=== PATIENT | female | born 1965 | race Caucasian/White ===

== ENCOUNTER 2023-06-27 02:20 | Day surgery (SDC) | payer OTHER, SELFPAY ==
--- NOTE | 2023-06-20 14:40 | SUR.PREOP ---
Report to the Outpatient Waiting Room, entrance under the green pavilion located off [facility], at time 0900 on date 06/27/23. Planned Procedure Time: 1100. Time changes happen often and if your time is changed the preop area will call you the afternoon before. - You and your visitor will be asked to self-screen and do not enter if you have any COVID symptoms. - A mask is optional within the hospital at this time. Patients may have clear liquids (water, carbonated beverages, clear teas, apple juice) until 3 hours prior to surgery with a maximum of 20 ounces. - No food from midnight until time of surgery - Infants may have breast milk until 4 hours before surgery, infant formula 6 hours prior to surgery. - Children will be allowed to drink immediately following surgery. If applicable, please bring a bottle or sippy cup to assist with drinking. Juice, water, soda, and popsicles are readily available. For infants on formula, please bring formula the day of surgery. Pacifiers are allowed. Take the following medications with a SIP of water the morning of surgery: N/A DO NOT STOP ANY OF YOUR OTHER PRESCRIPTION MEDICATIONS PRIOR TO SURGERY ?EXCEPT THE FOLLOWING Medications to discontinue per physician ALL VITAMINES AND SUPPLIMENTS 3 DAYS PRIOR. SEMAGLUTIDE (RYBELSUS 14MG PO)- STOP TODAY 06/20/23 Date to take last dose Please no make-up, nail bulgarian, hairspray, perfume, deodorant, or body powder the day of surgery. No jewelry (including any body piercings) or valuables the day of surgery, leave them at home. Please take a shower or bath the night before, or the morning of, surgery with an antibacterial soap. Wear comfortable, loose fitting clothing. Children are encouraged to wear pajamas. - Jewelry must be removed prior to entering the operating room. Rings and piercings that are not removed may be cut off. - The hospital will not accept responsibility for valuables. - Please leave all valuables, including medications, at home the day of surgery. If you are going home after surgery, a licensed corporate driver must drive you home. - NO public transportation without another adult if you receive anesthesia. - We recommend that an adult stay with you for 24 hours following discharge. - We also recommend that you do not drive, make important decision, drink alcoholic beverages, or take any drugs that were not prescribed by your health care provider for at least 24 hours after your discharge time. For Pediatric surgeries, we recommend two adults accompany the child home. Follow any additional instructions given to you from your surgeon. If you or anyone in your household have experienced Covid symptoms in the past week, please notify your surgeon or the nurse liaison at the phone number below for possible testing. Telephone instructions given to TABBY MICHAUD and asked if any additional questions and then verbalized understanding. Patient advised to call surgeon office or pre surgery nurse liaison [phone] if any additional questions.
[2023-06-20 15:06] VITALS: BMI 47.9
--- NOTE | 2023-06-27 07:21 | WPDHPUPDATE1 ---
History and Physical Update Update Date/Time: 06/27/23 07:21 History and Physical has been reviewed, including an updated exam of the patient. There are NO changes in the patient's condition. Risks, benefits, and alternatives have been discussed and questions answered. Patient agrees to proceed with procedure.
--- NOTE | 2023-06-27 07:21 | PM.HPGS ---
History of Present Illness History of Present Illness Consent: Risks, benefits, and alternatives have been discussed and questions answered. Patient agrees to proceed with procedure. Chief complaint: Post Menopausal Bleeding Narrative: Roberta Plata is a 58 year old new to my office in May of 2023. She reports over the last 18 months episodes of vaginal bleeding. Pelvic ultrasound revealed a thickened endometrium. Also, the ultrasound revealed possible fibroids. It was recommended to undergo D&C hysteroscopy. Risks infection bleeding, perforation, and possible pathology are discussed. In addition if the fibroid is blocking the view the endometrium, it was recommended to shave this down to see around it. Risks of fluid imbalance were also discussed. Patient voices understanding and agrees to proceed. Review of Systems Review of Systems: not repeated day of surgery; patient states no changes in status PMFSH Past Medical History Medical History (Updated 06/27/23 @ 07:46 by Tracy June MD) Diabetes Surgical History Surgical History (Updated 06/27/23 @ 07:44 by Tracy June MD) Hx of wisdom tooth extraction Social History Social History Years smoked: 7 Smoking status: Former smoker Last use: 32 years old Living arrangements: with family Spiritual care concerns: No Meds Home Medications and Allergies Home Medications Medication Instructions Recorded Confirmed Type Mag-Caps 500 mg PO DAILY 06/20/23 06/20/23 History ergocalciferol (vitamin D2) 1,250 1,250 mcg PO DAILY 06/20/23 06/20/23 History mcg (50,000 unit) capsule losartan 25 mg tablet 25 mg PO DAILY 06/20/23 06/20/23 History semaglutide 14 mg tablet (Rybelsus) 14 mg PO DAILY 06/20/23 06/20/23 History vitamin I92-wqzly acid 1,000 mcg PO DAILY 06/20/23 06/20/23 History Allergies Allergy/AdvReac Type Severity Reaction Status Date / Time No Known Allergies Allergy Verified 06/20/23 14:15 Exam Const: General: obese (BMI 48.4) Orientation/consciousness: patient oriented x3 Resp: Effort & Inspection: normal respiratory effort Auscultation: clear to auscultation bilaterally Cardio: Rate: regular rate Rhythm: regular rhythm GI: GI Palp: Yes Soft to palpation, No Tenderness to palpation present (GI) and No Palpable mass present : External Female Exam: normal external appearance Speculum Exam - Vagina: normal appearance of the vagina and normal vaginal discharge Speculum Exam - Cervix: normal appearance of the cervix Bimanual exam- vagina & uterus: uterine size normal and consistency normal Bimanual Exam- Adnexa, other: normal adnexae and No adnexal tenderness Neuro: General: patient oriented x3 Assessment and Plan Assessment and plan (1) Post-menopausal bleeding: Code(s): N95.0 - Postmenopausal bleeding Status: Acute Assessment and Plan: plan to proceed with D&C hysteroscopy
[2023-06-27 08:05] VITALS: BP 160/70; PULSE 68; RESP 14; TEMP 36.6; O2SAT 98
[2023-06-27] MEDS: ACETAMINOPHEN 500 MG TABLET 1000 MG PO (08:05)
[2023-06-27] MEDS: LACTATED RINGERS 1,000 ML 30 ML IV CONT (08:05)
[2023-06-27 08:20] LABS: Anion Gap 6 mmol/L (4-12); Blood Urea Nitrogen 13 mg/dL (7-17); Calcium 8.9 mg/dL (8.4-10.2); Carbon Dioxide 28 mmol/L (22-30); Chloride 102 mmol/L (98-107); Estimated CRCL calculation 124 ml/min; Estimated Glomerular Filt Rate > 60; Glucose 221 mg/dL (65-110); Potassium 4.4 mmol/L (3.4-5.0); Sodium 136 mmol/L (137-145)
--- NOTE | 2023-06-27 08:33 | WPDANESEPPF ---
Anes - Initial Pre Proc Eval Procedure: Operation Date: 06/27/23 09:45 Proposed Procedures p Hysteroscopy Dilation and Curettage - Tracy June MD Date/Time: 06/27/23 08:33 Surgeon: Tracy June MD Pre Op Diagnosis: Post Menopausal Bleeding Patient Data Age: 58 Gender: F Height: 1.57 m Weight: 119.5 kg Last Vital Signs Temp 36.6 C 06/27/23 08:05 Pulse 68 06/27/23 08:05 Resp 14 06/27/23 08:05 BP 160/70 H 06/27/23 08:05 Pulse Ox 98 06/27/23 08:05 O2 Del Method Room Air 06/27/23 08:05 Allergies Allergy/AdvReac Type Severity Reaction Status Date / Time No Known Allergies Allergy Verified 06/20/23 14:15 Home Medications Medication Instructions Recorded Confirmed Type Mag-Caps 500 mg PO DAILY 06/20/23 06/20/23 History ergocalciferol (vitamin D2) 1,250 1,250 mcg PO DAILY 06/20/23 06/20/23 History mcg (50,000 unit) capsule losartan 25 mg tablet 25 mg PO DAILY 06/20/23 06/20/23 History semaglutide 14 mg tablet (Rybelsus) 14 mg PO DAILY 06/20/23 06/20/23 History vitamin G54-fpbtt acid 1,000 mcg PO DAILY 06/20/23 06/20/23 History Laboratory Tests 06/27/23 08:03 Sodium 136 L mmol/L (137-145) Potassium 4.4 mmol/L (3.4-5.0) Chloride 102 mmol/L (98-107) Carbon Dioxide 28 mmol/L (22-30) Anion Gap 6 mmol/L (4-12) BUN 13 mg/dL (7-17) Creatinine 0.50 L mg/dL (0.7-1.0) Estim Creat Clear Calc 124 ml/min Estimated GFR > 60 (59 - ) Glucose 221 H mg/dL (65-110) Calcium 8.9 mg/dL (8.4-10.2) Patient hx anesthesia problems: none Family hx anesthesia problems: none Results Review: All pre-operative results and documents have been reviewed as part of the pre-operative evaluation. [facility] Past Medical History Medical History (Updated 06/27/23 @ 08:33 by Param Jones MD) Diabetes Morbid obesity Surgical History Surgical History Hx of wisdom tooth extraction Social History Social History Years smoked: 7 Smoking status: Former smoker Last use: 32 years old Living arrangements: with family Spiritual care concerns: No Anes - Eval Final PreProcedure Day of Procedure 06/27/23 08:33 Patient weight: morbidly obese Heart: regular rate and rhythm Lungs: clear to auscultation Airway: Mallampati scale class II Neurological: alert and oriented Last oral intake: >/= 8 hours ASA classification: III Emergent: no Anesthetic plan: proceed Anesthesia type and monitoring: general GIVS and standard monitoring Results Review: All pre-operative results and documents have been reviewed as part of the pre-operative evaluation. Informed Consent: The patient's anesthetic plan and its attendant risks and benefits were discussed with the patient/family/POA. Questions were solicited and answers provided to the satisfaction of the patient/family/POA.
[2023-06-27 09:15] VITALS: BP 137/76; PULSE 66; RESP 14; O2SAT 95
--- NOTE | 2023-06-27 09:17 | P.OP_ITS ---
Procedure Note - Detailed Date of Procedure 06/27/23 Pre-op Diagnosis Post Menopausal Bleeding Post-op Diagnosis Same Procedure Performed D&C hysteroscopy Surgeon Tracy June MD Anesthesia MAC Findings uterus sounds to 6cm polyp at the anterior right fundus polyp versus fibroid mid posterior wall Description of Procedure The patient is taken to the operating room and placed under anesthesia in the dorsal lithotomy position. She was prepped and draped in the usual sterile fashion. Garrison speculum is placed in the vagina and the cervix grasped on the anterior lip with a tenaculum. The uterus is sounded to 6cm. The diagnostic hysteroscope was placed and there is a polyp noted at the right anterior fundus as well as the mid posterior wall. The Aveeta resection device is placed and the polyp removed in its entirety from the right anterior fundus. The posterior wall suspected polyp was removed however appears to be a fibroid. It is removed in its entirety. It was partially intramural thus leaving a a divot in the endometrium. The hysteroscope was then removed. The sharp OO curette is used to curette the endometrium until a good uterine cry was noted in all areas. All instruments are then removed. Sponge, needle, and instrument counts are correct per the OR staff. Patient was awakened from anesthesia and taken to recovery in stable condition. Estimated Blood Loss 5 Drains No Packing No Pathology Yes ( Endometrial shavings and curettings) Complications No immediate complications Condition Stable Disposition PACU
[2023-06-27 09:25] LABS: Glucose Point of Care 189 mg/dl (65-105)
[2023-06-27 09:45] VITALS: BP 146/77; PULSE 63; RESP 14; O2SAT 96
== END 2023-06-27 10:03 | disposition home or self-care (01) ==
PROVIDERS: Anesthesiology; PCP Internal Medicine; Visit Provider Obstetrics & Gynecology Gynecology
PROC: 0U5B8ZZ Destruction of Endometrium, Via Natural or Artificial Opening Endoscopic (ICD-10-PCS; CPT 58563; principal; 2023-06-27 09:45)
DX: N95.0 Postmenopausal bleeding (principal); N84.0 Polyp of corpus uteri; E11.9 Type 2 diabetes mellitus without complications; Z79.84 Long term (current) use of oral hypoglycemic drugs; E66.01 Morbid (severe) obesity due to excess calories; Z68.42 Body mass index [BMI] 45.0-49.9, adult; Z87.891 Personal history of nicotine dependence
CPT/HCPCS: 58558; 36415; 80048; 82948; 88305; A9270; J2704; J3010; J7120